=== PATIENT | male | born 1980 | race Caucasian/White ===

== ENCOUNTER 2017-06-11 13:14 | Emergency (ER) | payer OTHER ==
[2017-06-11 13:15] VITALS: BMI 27.1
[2017-06-11 13:54] VITALS: TEMP 98.1
--- NOTE | 2017-06-11 16:52 | C.PDOC ---
History Of Present Illness 37 yr old male presents to the ER with complaints of decreased hearing and clogged sensation of the left ear for the past 2 weeks. Patient states he has been using debrox ear drops for the past 1 week with no relief. He denies fever , ear discharge, sore throat, neck pain, headache, rashes. Time Seen by Provider: 06/11/17 15:09 Chief Complaint (Nursing): ENT Problem History Per: Patient History/Exam Limitations: None Onset/Duration Of Symptoms: Days (2 weeks) Symptoms Have Been: Continuous Severity: Mild Past Medical History Reviewed: Historical Data, Nursing Documentation, Vital Signs Vital Signs: Last Vital Signs Temp 98.1 F 06/11/17 13:51 Pulse 84 06/11/17 17:07 Resp 16 06/11/17 17:07 BP 142/85 06/11/17 17:07 Pulse Ox 100 06/11/17 18:27 - Medical History PMH: Pneumonia Family History: States: No Known Family Hx - Social History Hx Tobacco Use: No Hx Alcohol Use: Yes Hx Substance Use: No - Immunization History Hx Tetanus Toxoid Vaccination: No Hx Influenza Vaccination: No Hx Pneumococcal Vaccination: No Review Of Systems Except As Marked, All Systems Reviewed And Found Negative. Constitutional: Negative for: Fever ENT: Positive for: Other (Left ear- decreased hearing and clogged sensation ). Negative for: Ear Discharge, Throat Pain Respiratory: Negative for: Cough, Shortness of Breath Musculoskeletal: Negative for: Neck Pain Neurological: Negative for: Headache, Dizziness Physical Exam - Physical Exam Appears: Well, Non-toxic, No Acute Distress Skin: Warm, Dry Head: Normacephalic Ear(s): Bilateral: Other (Cerumen impaction left ear, no erythema of canal, no ear discharge ) Oral Mucosa: Moist Throat: Normal, No Erythema, No Exudate Neck: Normal, Supple Cardiovascular: Rhythm Regular Respiratory: Normal Breath Sounds, No Rales, No Rhonchi, No Wheezing Neurological/Psych: Oriented x3 ED Course And Treatment O2 Sat by Pulse Oximetry: 100 (RA) Pulse Ox Interpretation: Normal Progress Note: PLAN: Debrox instilled into left ear. Left ear irrigated with normal saline using 18 tiffanie angiocath (by wi). (+) removal of cerumen. Patient tolerated procedure well, with resolution of symptoms after cerumen removal. Patient given Rx for Debrox, and was instructed to follow up with ENT within 1 week. Patient understands he should return to ED if symptoms worsen. Reevaluation Time: 17:00 Reassessment Condition: Improved Disposition Counseled Patient/Family Regarding: Diagnosis, Need For Followup, Rx Given - Disposition Referrals: Ryan Booker MD [Staff Provider] - Disposition: HOME/ ROUTINE Disposition Time: 17:00 Condition: STABLE Additional Instructions: FOLLOW UP WITH ENT WITHIN 1 WEEK USE EAR DROPS NEEDED RETURN TO ER IF SYMPTOMS WORSEN Prescriptions: Carbamide Peroxide [Debrox 15 Ml] 5 drop OT BID #1 bottle Instructions: Cerumen Impaction (ED) Forms: [employer] (Surinamese) Print Language: KINYARWANDA - POA Present On Arrival: None - Clinical Impression Clinical Impression: Cerumen impaction - Scribe Statement The provider has reviewed the documentation as recorded by the Jose Danielibsharmila Espinal Provider Attestation: All medical record entries made by the Jose Danielibe were at my direction and personally dictated by me. I have reviewed the chart and agree that the record accurately reflects my personal performance of the history, physical exam, medical decision making, and the department course for this patient. I have also personally directed, reviewed, and agree with the discharge instructions and disposition.
[2017-06-11 17:07] VITALS: BP 142/85; PULSE 84; RESP 16
[2017-06-11 18:17] VITALS: O2SAT 100
== END 2017-06-11 17:07 | disposition home or self-care (01) ==
LOC: C.ER 13:14
DX: H61.22 Impacted cerumen, left ear (principal)

== ENCOUNTER 2017-11-10 16:58 | Emergency (ER) | payer OTHER ==
[2017-11-10 16:58] VITALS: BMI 27.1
[2017-11-10] MEDS ORDERED: Sodium Chloride 0.9% 1,000 ML IV ONE (17:51)
--- NOTE | 2017-11-10 17:54 | C.PDOC ---
History Of Present Illness <Sammi Piper - Last Filed: 11/10/17 19:03> <Tianna Hines - Last Filed: 11/11/17 04:10> Patient presents to ED with complaints of abdominal pain associated with vomiting and non-bloody watery diarrhea since yesterday afternoon. Patient reports symptoms started after eating lunch and coffee yesterday at work. He describes pain as generalized cramps, gas and bloating. He took pepto bismol yesterday which temporarily helped his symptoms. Today patient mainly complains of diarrhea and nausea, he took immodium few hours ago but is still running to bathroom. He thinks he had bad soup or stomach virus. Denies any fever, weakness , recent travel or sick contacts. (Sammi Piper) History Per: Patient History/Exam Limitations: no limitations Onset/Duration Of Symptoms: Days Current Symptoms Are (Timing): Still Present Context: Food Severity: Mild Location Of Pain/Discomfort: Diffuse Radiation Of Pain To:: None Quality Of Discomfort: Pressure, "Pain", Gas Associated Symptoms: Nausea, Vomiting, Diarrhea Exacerbating Factors: Food Last Bowel Movement: Today <Sammi Piper - Last Filed: 11/10/17 19:03> <Tianna Hnies - Last Filed: 11/11/17 04:10> Time Seen by Provider: 11/10/17 17:46 Chief Complaint (Nursing): Abdominal Pain Past Medical History Reviewed: Historical Data, Nursing Documentation, Vital Signs - Medical History PMH: GERD, Pneumonia Surgical History: No Surg Hx Family History: States: Unknown Family Hx - Social History Hx Tobacco Use: No Hx Alcohol Use: Yes Hx Substance Use: No - Immunization History Hx Tetanus Toxoid Vaccination: No Hx Influenza Vaccination: No Hx Pneumococcal Vaccination: No <Sammi Piper - Last Filed: 11/10/17 19:03> Vital Signs: Last Vital Signs Temp 98.4 F 11/10/17 20:38 Pulse 93 H 11/10/17 20:38 Resp 16 11/10/17 20:38 BP 120/77 11/10/17 20:38 Pulse Ox 96 11/10/17 20:38 Review Of Systems Constitutional: Negative for: Weakness, Malaise Eyes: Negative for: Vision Change Cardiovascular: Negative for: Palpitations Respiratory: Negative for: Cough, Shortness of Breath Gastrointestinal: Positive for: Vomiting, Abdominal Pain, Diarrhea Genitourinary: Negative for: Dysuria Skin: Negative for: Rash Neurological: Negative for: Weakness, Numbness, Headache, Dizziness <FelizSammi L - Last Filed: 11/10/17 19:03> Physical Exam - Physical Exam Appears: Well, Non-toxic, No Acute Distress Skin: Warm, Dry, No Diaphoretic, No Pale Head: Atraumatic, Normacephalic Eye(s): bilateral: Normal Inspection, EOMI Nose: Normal, No Discharge Oral Mucosa: Moist Neck: Normal ROM Chest: Symmetrical, No Deformity, No Tenderness Cardiovascular: Rhythm Regular (S1,S2), No Murmur, No JVD Respiratory: Normal Breath Sounds (clear lungs sounds bilaterally), No Accessory Muscle Use, No Rales, No Rhonchi, No Wheezing Gastrointestinal/Abdominal: Bowel Sounds (active), Soft, Tenderness (minimally tender diffusely across abdomen), No Distention, No Guarding, No Rebound Back: Normal Inspection, No CVA Tenderness, No Vertebral Tenderness, No Paraspinal Tenderness Extremity: Bilateral: Atraumatic, Normal Color And Temperature, Normal ROM Neurological/Psych: Oriented x3, Normal Speech Gait: Steady <Sammi Piper - Last Filed: 11/10/17 19:03> ED Course And Treatment - Laboratory Results Result Diagrams: 11/10/17 18:15 O2 Sat by Pulse Oximetry: 99 <Sammi Piper Last Filed: 11/10/17 19:03> - Laboratory Results Result Diagrams: 11/10/17 18:15 11/10/17 18:15 <Tianna Hines - Last Filed: 11/11/17 04:10> Medical Decision Making <Sammi Piper - Last Filed: 11/10/17 19:03> <Tianna Hines - Last Filed: 11/11/17 04:10> Medical Decision Making: Impression: Abdominal pain, vomiting, diarrhea Plan: * Labs * Urinalysis * IV NS, Pepcid Progress: 183 CBC reviewed normal H/H, no leukocytosis or bands 1900 Case signed out to Dr Hines pending CMP, re-eval and dispo. Patient is in bed in no distress. Patient has not given urine. (Sammi Piper) Disposition - Disposition Disposition Time: 19:03 <Sammi Piper - Last Filed: 11/10/17 19:03> <Tianna Hines - Last Filed: 11/11/17 04:10> - Disposition Referrals: [facility] [Outside] Disposition: HOME/ ROUTINE Condition: GOOD Prescriptions: Atropine/Diphenoxylate [Lonox 0.025 MG-2.5 MG] 1 tab PO QID PRN #10 tab PRN Reason: Diarrhea Dicyclomine [Bentyl] 20 mg PO TID PRN #10 tab PRN Reason: Irritable Bowel Symptoms Instructions: Gastroenteritis (ED) Forms: [employer] (Gambian) Print Language: ESTONIAN - Clinical Impression Clinical Impression: Gastroenteritis Physician Patient Turnover Patient Signed Over To: Tianna Hines Handoff Comments: pending CMP, re-eval and dispo <Sammi Piper - Last Filed: 11/10/17 19:03>
[2017-11-10] MEDS ORDERED: Sodium Chloride 0.9% 1,000 ML ONE (18:02)
[2017-11-10 18:26] LABS: BASO % 0.2 % (0.0-2.0); EOS # 0.1 K/uL (0.0-0.7); EOS % 1.7 % (0.0-4.0); HEMOGLOBIN 14.7 g/dL (12.0-18.0); LYMPH # 1.8 K/uL (1.0-4.3); LYMPH % 22.4 % (20.0-40.0); MEAN CELL VOLUME 81.4 fL (80.0-94.0); MEAN CORPUSCULAR HEMOGLOBIN 27.9 pg (27.0-31.0); MEAN CORPUSCULAR HGB CONC 34.2 g/dL (33.0-37.0); MONO # 0.5 K/uL (0.0-0.8); MONO % 6.5 % (0.0-10.0); NEUT # 5.4 K/uL (1.8-7.0); NEUT % 69.2 % (50.0-75.0); RBC 5.28 Mil/uL (4.40-5.90); RED CELL DISTRIBUTION WIDTH 13.6 % (11.5-14.5); WHITE BLOOD COUNT 7.8 K/uL (4.8-10.8)
[2017-11-10 19:03] LABS: ALBUMIN 4.3 g/dL (3.5-5.0); ALT/SGPT 65 U/L (21-72); AST/SGOT 40 U/L (17-59); BLOOD UREA NITROGEN 12 mg/dL (9-20); CALCIUM 8.4 mg/dl (8.6-10.4); GFR AFRICAN-AMERICAN > 60; GFR NON-AFRICAN AMERICAN > 60; LIPASE 183 U/L (23-300)
[2017-11-10 19:45] LABS: SQUAMOUS EPITHIAL < 1 /hpf (0-5); URINE BILIRUBIN NEGATIVE (NEGATIVE); URINE BLOOD 1+ (NEGATIVE); URINE CLARITY Clear (Clear); URINE COLOR Yellow (YELLOW); URINE GLUCOSE (UA) NORMAL (Normal); URINE LEUKOCYTE ESTERASE NEG Leu/uL (Negative); URINE NITRATE NEGATIVE (NEGATIVE); URINE PROTEIN NEGATIVE (NEGATIVE); URINE UROBILINOGEN NORMAL mg/dL (0.2-1.0)
[2017-11-10 20:39] VITALS: BP 120/77; PULSE 93; RESP 16; TEMP 98.4; O2SAT 96
== END 2017-11-10 20:59 | disposition home or self-care (01) ==
LOC: C.ER 16:58
DX: K52.9 Noninfective gastroenteritis and colitis, unspecified (principal)
CPT/HCPCS: 80053; 81001; 83690; 85025; 96374; 96375; 99285; J2405; J7040